=== PATIENT | female | born 1995 | race Two or more races ===

== ENCOUNTER 2022-08-13 09:32 | Emergency (ER) | payer OTHER ==
--- NOTE | 2022-08-13 10:35 | ED Physician Documentation ---
PD HPI FOCAL NEURO - Stated complaint Stated Complaint: LT FACIAL NUMBNESS - Chief complaint Chief Complaint: Neuro - History obtained from History obtained from: Patient - History of Present Illness Timing - onset: Yesterday Timing - duration: Days (1) Timing - details: Gradual onset (she noted onset of feeling left side of face weaker and some decreased tast left tongue. This gradually worsened through day. Has increased weakness today to where can't fully close left eye. Able to drink through straw. Noted some dribbling with use of glass.), Still present Severity of deficit: Moderate Weakness: Face (just left side of face.). No: Arm, Hand Numbness: No: Face, Arm, Hand Associated symptoms: No: Headache, Nausea / vomiting Similar symptoms before: Has not had sx before Review of Systems Constitutional: denies: Fever, Chills Ears: denies: Ear pain, Drainage/discharge Nose: denies: Rhinorrhea / runny nose, Congestion Throat: denies: Dental pain / toothache, Sore throat Skin: denies: Rash, Lesions Neurologic: denies: Headache PD PAST MEDICAL HISTORY - Past Medical History Past Medical History: No - Present Medications Home Medications: Ambulatory Orders Medication Instructions Recorded Confirmed Peg 400/Hypromellose/Glycerin 2 drops LEFTEYE Q3H #15 ml 08/13/22 [Artificial Tears Drops] dexAMETHasone [Decadron] 4 mg PO DAILY #5 tablet 08/13/22 valACYclovir [Valtrex] 500 mg PO TID #15 tablet 08/13/22 - Allergies Allergies/Adverse Reactions: Allergies Allergy/AdvReac Type Severity Reaction Status Date / Time No Known Drug Allergies Allergy Verified 08/13/22 10:11 PD ED PE NORMAL - Vitals Vital signs reviewed: Yes - General General: Alert and oriented X 3, No acute distress, Well developed/nourished - HEENT HEENT: PERRL, EOMI, Ears normal, Pharynx benign, Dentition benign, Other (left facil weakness including forehead. ) - Neck Neck: Supple, no meningeal sign, No adenopathy - Cardiac Cardiac: RRR, No murmur - Derm Derm: Normal color, Warm and dry - Neuro Neuro: Alert and oriented X 3, No sensory deficit, Normal speech, Other (left facial wekness, including ofrehead. She can not fully close left eye. ) Results - Vitals Vitals: Vital Signs - 24 hr 08/13/22 08/13/22 10:05 11:39 Temperature 36.6 C Heart Rate 69 58 L Respiratory 19 18 Rate Blood Pressure 142/91 H 117/71 O2 Saturation 100 100 Oxygen O2 Source Room air PD Medical Decision Making - ED course Complexity details: considered differential, d/w patient ED course: The patient has had slow progressive onset of left facial weakness on the left side and a feeling of numbness on the portion of the side of the tongue over the last 2 days. This does involve the forehead as well. No ear pain or recent head cold. No dental infections. No skin rash or sores. She does not have history of cold sores. She is stationed here on [facility]. She was on leave and drove down to [place]. She was not camping but was just visiting family. She has not been camping and visiting in the [place] in the past several months. Exam is consistent with Smith palsy/facial nerve involvement. Departure - Departure Disposition: 01 Home, Self Care Clinical Impression: Smith palsy Condition: Stable Record reviewed to determine appropriate education?: Yes Instructions: ED [place] [facility] Follow-Up: [facility] [Provider Group] Prescriptions: Peg 400/Hypromellose/Glycerin [Artificial Tears Drops] 2 drops LEFTEYE Q3H #15 ml dexAMETHasone [Decadron] 4 mg PO DAILY #5 tablet valACYclovir [Valtrex] 500 mg PO TID #15 tablet Comments: Your symptoms and exam are consistent with a inflammation of the facial nerve causing the weakness on that side. This can be termed Smith palsy when its not clear the cause of it. Sometimes it is related to mild infection in the nerve root. The common treatment for this is an anti-inflammatory steroid medicine to reduce inflammation of the nerve and also a antiviral medication as viral causes are relatively common. The peak of symptoms from the onset is commonly 4 to 5 days and then resolution can typically take 2 to 3 weeks. Symptom treatment would be some artificial tears or lubricant to keep the eye from drying out. Dietary intake with regard to liquids versus thickened foods and what is easiest for 6 drinking and swallowing will be variable based on the degree of weakness. Fine what is best and easiest for you. Liquids and solids may be harder to keep in and think more of thickened liquids if needed. Follow-up with your primary care later this week, call for an appointment. I sent your prescriptions to [facility] pharmacy. Discharge Date/Time: 08/13/22 11:43
[2022-08-13] MEDS ORDERED: DEXAMETHASONE 10 MG/ML VIAL PO STA (11:00)
[2022-08-13] MEDS ORDERED: CHERRY SYRUP 10 ML UDC PO ONE (11:00)
[2022-08-13 11:42] VITALS: BP 117/71
== END 2022-08-13 11:43 | disposition home or self-care (01) ==
LOC: ED 09:32
DX: G51.0 Bell's palsy (principal)
CPT/HCPCS: 99282; 99283; A9270